=== PATIENT | male | born 1955 | race Caucasian/White ===

== ENCOUNTER → 2016-09-09 | Outpatient (CLI) | payer OTHER ==
--- NOTE | 2016-09-09 18:11 | DX ---
Lumbar Spine, Five Views Indication: Acute right-sided low back pain. Technique: AP, lateral, lateral lumbosacral, and oblique views. Comparison: None. Findings: The lumbar spine is anatomically aligned. No acute acute compression fracture or pars def ect. Severe degenerative disk and facet arthropathy is present at L5-S1. Moderate degenerative disk and facet arthropathy is present at L4-L5. Mild degenerative disk and facet arthropathy is present at L1-L2 through L3-L4. 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 Moderate volu me of retained stool is present in the right hemicolon. Impression: 1. Multilevel degenerative disk and facet arthropathy, worse at the L5-S1 level. 2. No compression fracture or bone lesion
== END ==
LOC: BRMIMAGING 15:46
PROVIDERS: ATTEND Physician Assistant
DX: M54.41 Lumbago with sciatica, right side (principal); M51.37 Other intervertebral disc degeneration, lumbosacral region
CPT/HCPCS: 72100-PO